=== PATIENT | female | born 1935 | race Caucasian/White ===

== ENCOUNTER 2017-09-20 18:14 | Emergency (ER) | payer MEDICARE, OTHER, SELFPAY ==
[2017-09-20 18:15] VITALS: BP 181/94; PULSE 109; RESP 18; TEMP 36.3; O2SAT 98; BMI 31.8
--- NOTE | 2017-09-20 19:11 | CT_ITS ---
STUDY: CT BRAIN WITHOUT CONTRAST REASON FOR EXAM: Female, 81 years old. Recent fall. Dementia. RADIATION DOSAGE (If Supplied By Facility): CTDIvol = ( 44.99 ) mGy, DLP = ( 745.49 ) mGycm TECHNIQUE: Transaxial CT imaging of the brain was performed without administration of intravenous contrast material. Individualized dose optimization techniques were used for this CT. COMPARISON: None. FINDINGS: Normal soft tissue structures. Normal calvarium. There is mild cerebral atrophy with widening of the extra-axial spaces and ventricular dilatation. Normal white matter tracts of the cerebral hemispheres. Normal basal ganglia and thalami. Normal brainstem. There is mild cerebellar atrophy. There is no intracranial hemorrhage. There are no findings of an acute ischemic infarction. Normal visualized paranasal sinuses. CT/Brain/Head without Contrast IMPRESSION: Mild atrophy. No acute abnormality. Electronically Signed: Reinaldo Kim MD at 20:44 EST , Service support ,
--- NOTE | 2017-09-20 19:11 | EKG12_ITS ---
Test Reason : Blood Pressure : / mmHG Vent. Rate : 090 BPM Atrial Rate : 090 BPM P-R Int : 242 ms QRS Dur : 092 ms QT Int : 378 ms P-R-T Axes : 058 064 032 degrees QTc Int : 462 ms Sinus rhythm with 1st degree A-V block Low voltage QRS (limb leads) Borderline ECG Confirmed by PIEDAD SINGH, GENE ([id number]), commercial production editor SANDHYA PATE ([id number] on 09/23/2017 12:52:51 PM Referred By: LUCINDA Confirmed By:GENE HERBERT MD
--- NOTE | 2017-09-20 19:12 | RAD_ITS ---
STUDY: X-RAY - PELVIS AND LEFT HIP REASON FOR EXAM: Female, 81 years old. Left hip pain after slipping and falling. TECHNIQUE: Radiological exam, hip, unilateral, with pelvis when performed; 2 or 3 views. COMPARISON: None. FINDINGS: There is a non-specific bowel gas pattern. Normal visualized soft tissue structures. There is generalized osteopenia. Normal bilateral iliac wings, sacroiliac joints and visualized sacrum. Normal bilateral superior and inferior pubic rami. Normal pubic symphysis. Normal bilateral ischial tuberosities. 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 No acute abnormality. Electronically Signed: Franki Michelle MD at 20:54 EST , Service support ,
[2017-09-20 19:29] LABS: Mucous, Urine 0 SEEN /hpf (<or=2+)
[2017-09-20] MEDS: 0.9% Normal Saline 1,000 ML 1000 ML IV (19:34)
--- NOTE | 2017-09-20 19:45 | RAD_ITS ---
STUDY: X-RAY CHEST REASON FOR EXAM: Female, 81 years old. Fall. Pain. TECHNIQUE: Single frontal view of the chest. COMPARISON: None. FINDINGS: The lungs are mildly hyperexpanded. There is no demonstrated pleural abnormality. There is cardiomegaly. Normal mediastinum and millicent. Normal visualized pulmonary arteries. Normal visualized aortic arch and descending thoracic aorta. Normal visualized thoracic spine. Incidentally noted is moderate arthrosis of both glenohumeral joints. There is no demonstrated abnormality of the visualized soft tissue structures of the upper abdomen. RAD/Chest 1 View (Portable) IMPRESSION: Cardiomegaly with mild hyperexpansion. No acute pathology. Electronically Signed: Franki Michelle MD at 20:52 EST , Service support ,
[2017-09-20 19:57] LABS: Absolute Lymphocyte Count 1.12 X10^3/ul (0.83-4.51); Basophil# 0.02 X10^3/uL; Basophil% 0.2 % (0-1); Eosinophil# 0.07 X10^3/uL; Eosinophils% 0.9 % (0-5); Hematocrit 34.1 % (37-47); Hemoglobin 10.6 g/dl (12.0-15.0); Lymphocyte # 1.12 X10^3/ul (4.0); Lymphocyte % 13.9 % (19-41); Mean Corp Hgb Conc 31.1 g/gl (32-36); Mean Corpuscular Hgb 28.6 pg (27.0-32.0); Mean Corpuscular Volume 92.2 fL (81-99); Mean Platelet Vol. 9.6 fl (6.2-12.0); Monocyte# 0.84 X10^3/uL; Monocyte% 10.4 % (0-10); Neutrophil # 6.02 X10^3/uL (2.7-7.7); Neutrophil % 74.5 % (47-70); POSITIVE COUNT NO; POSITIVE DIFFERENTIAL NO; POSITIVE MORPHOLOGY NO; Platelet Count 346 K/mm3 (150-450); RBC Distribution Width CV 13.8 % (11.6-14.6); White Blood Count 8.1 K/mm3 (4.4-11.0)
[2017-09-20 20:06] LABS: Color, Urine Yellow (Yellow); Glucose, Dipstick Normal (Normal); Ketone-Dipstick Negative (Negative); Leukocyte Esterase-Dipstick 500 /ul (Negative); Nitrite-Dipstick Negative (Negative); Occult Blood-Urine 10 /ul (Negative); Protein-Dipstick Negative (Negative); Urine Bilirubin Dipstick Negative (Negative); Urine Clarity Sl. Cloudy (Clear); Urine Urobilinogen Normal (Normal)
[2017-09-20 20:10] LABS: Anion Gap 10 (5-15); BUN 16 mg/dL (7-18); BUN/Creat Ratio 20.7 RATIO (10-20); Calcium,Total 9.8 mg/dL (8.5-10.1); Chloride 98 mmol/L (98-107); Creatinine, Serum 0.77 mg/dL (0.55-1.02); EST Glomerular Filtration Rate 76 mL/min (>60); Est Glom Filt Rate - Afr Amer 92 mL/min (>60); Estimated Creatinine Clearance 38.75 ml/min; Glucose 101 mg/dL (74-106); Sodium Level 137 mmol/L (136-145)
[2017-09-20 20:42] LABS: Bacteria 2+ /hpf (None Seen); Red Blood Cells-Urine 5-10 SEEN /hpf (0-5); Squamous Epithelial Cells - UA 0-5 SEEN /hpf (5-10); White Blood Cells 10-25 SEEN /hpf (0-5)
[2017-09-20 20:54] VITALS: RESP 18
--- NOTE | 2017-09-20 21:24 | ED.VISSUMM ---
- ER Visit Summary Date of Service: 09/20/17 Chief Complaint: Left hip pain History of Present Illness: The patient is a 81 F who presents with left hip pain. She does have a history of dementia. Family recently moved her back to the area. They do not yet have a family doctor. She has been having some increased confusion and agitation. A few days ago she was looking for someone under the bed and fell onto her left side. She has complained of some left hip pain but has been able to ambulate without difficulty. Family also notes that she has had some increased agitation and is been more combative. They were concerned for dehydration or UTI. They are in the process of establishing a physician. Physical Examination: Afebrile heart rate 109 vitals otherwise unremarkable Moist mucous membranes Heart regular rhythm tachycardia Lungs are clear Abdomen soft Active full range of motion ?4 no reproducible tenderness 2+ bilateral dorsalis pedis pulses Alert without any focal or lateralizing neurological deficits Test Results: EKG shows sinus rhythm at a rate of 90 with a first-degree AV block. Chest x-ray shows cardiomegaly but no acute process. 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 CT the head shows mild atrophy. Laboratory studies unremarkable except for urinalysis which shows 500 leukocyte esterase 10-25 WBCs 5 to RBCs 2+ bacteria. Emergency Department Course and Treatment: Initially the family was concerned about her agitation. However she has been calm and cooperative during her course here. Given that she does have a UTI I would expect improvement with treatment of this. Patient and family are in agreement with this plan and will take her home. They understand to return for new or worsening symptoms. All questions answered at bedside. Patient discharged. Treatment Plan: [] Disposition: Discharge Impression: UTI Dementia This note was generated with [employer] software. It may contain incorrect words, spelling, and punctuation that were not noted in review of the chart prior to signing ED Disposition - Plan for ED Patient: Chief Complaint: Lower Extremity Injury Referrals: Osvaldo Yip MD [Primary Care Provider] -
--- NOTE | 2017-09-20 21:27 | ED.DEP ---
ED Disposition - Plan for ED Patient: Chief Complaint: Lower Extremity Injury Instructions: ED UTI Cystitis Male, ED Dementia Alzheimer Prescriptions: Cephalexin [Keflex] 500 mg PO Q12H #20 cap Referrals: Osvaldo Yip MD [Primary Care Provider] -
[2017-09-20 21:35] VITALS: BP 164/90; PULSE 95; RESP 16; O2SAT 98
== END 2017-09-20 21:36 | disposition home or self-care (01) ==
PROVIDERS: Emergency Provider Emergency Medicine; Family Provider Family Medicine; PCP Family Medicine
DX: N39.0 Urinary tract infection, site not specified (principal); F03.90 Unspecified dementia, unspecified severity, without behavioral disturbance, psychotic disturbance, mood disturbance, and anxiety; M16.0 Bilateral primary osteoarthritis of hip; I10 Essential (primary) hypertension; Z79.899 Other long term (current) drug therapy
CPT/HCPCS: 70450; 71045; 73502; 80048; 81001; 85025; 93005; 96360; 96361; 99284; J7030; A4216

== ENCOUNTER 2017-09-23 13:02 | Emergency (ER) | payer MEDICARE, OTHER, SELFPAY ==
[2017-09-23 13:04] VITALS: BP 162/94; PULSE 99; RESP 16; TEMP 36.2; O2SAT 99; BMI 31.5
[2017-09-23 15:05] VITALS: BP 139/75; PULSE 64; RESP 15; O2SAT 96
[2017-09-23 15:14] LABS: Absolute Lymphocyte Count 1.35 X10^3/ul (0.83-4.51); Basophil# 0.02 X10^3/uL; Basophil% 0.2 % (0-1); Eosinophil# 0.08 X10^3/uL; Hematocrit 37.3 % (37-47); Hemoglobin 11.4 g/dl (12.0-15.0); Lymphocyte # 1.35 X10^3/ul (4.0); Lymphocyte % 16.6 % (19-41); Mean Corp Hgb Conc 30.6 g/gl (32-36); Mean Corpuscular Hgb 28.6 pg (27.0-32.0); Mean Corpuscular Volume 93.5 fL (81-99); Monocyte# 0.64 X10^3/uL; Monocyte% 7.9 % (0-10); Neutrophil # 6.02 X10^3/uL (2.7-7.7); Neutrophil % 74.2 % (47-70); POSITIVE COUNT NO; POSITIVE DIFFERENTIAL NO; POSITIVE MORPHOLOGY NO; Platelet Count 350 K/mm3 (150-450); RBC Distribution Width CV 13.9 % (11.6-14.6); RBC Distribution Width SD 47.7 fl (35.1-43.9); Red Blood Count 3.99 M/mm3 (4.2-5.4); White Blood Count 8.1 K/mm3 (4.4-11.0)
[2017-09-23 15:21] LABS: Anion Gap 7 (5-15); BUN 13 mg/dL (7-18); BUN/Creat Ratio 16.2 RATIO (10-20); Calcium,Total 9.9 mg/dL (8.5-10.1); Chloride 100 mmol/L (98-107); EST Glomerular Filtration Rate 73 mL/min (>60); Est Glom Filt Rate - Afr Amer 88 mL/min (>60); Estimated Creatinine Clearance 48.43 ml/min; Glucose 151 mg/dL (74-106); Potassium 3.5 mmol/L (3.5-5.1); Sodium Level 139 mmol/L (136-145)
--- NOTE | 2017-09-23 16:46 | ED.DCSUM_ITS ---
- ER Visit Summary Date of Service: 09/23/17 Chief Complaint: Agitation History of Present Illness: The patient is a 81 F with a history of dementia who presents with agitation. She underwent a full workup just a few days ago and was diagnosed with UTI. Family states she has continued to become increasingly agitated. She has been calling multiple people on the phone asking them to pick her up. She has had hallucinations. She has been afraid that people are holding guns. No recent medical illnesses far as fevers vomiting diarrhea. The patient denies any pain currently. Currently she has also been asking for knives and threatening to hurt family members who she did not recognize. Physical Examination: Afebrile vitals are stable Moist mucous membranes Heart regular rate and rhythm Lungs are clear Abdomen soft Alert, oriented to person No focal or lateralizing neurological deficits Test Results: CBC BMP unremarkable. Emergency Department Course and Treatment: Patient underwent a workup just a few days ago including imaging labs and urine. I do not feel that urinalysis EKG chest x-ray or CT the head needed repeated. We did repeat a CBC and BMP and spoke to crisis. Given that the patient is not improving I do feel she will likely need admission to a general psychiatric unit. The patient did get to have some increased agitation here pacing the hallways. She was given Ativan. At the time of this dictation crisis is evaluating the patient and attempting to arrange transfer. Treatment Plan: [] Disposition: Transfer pending crisis evaluation Impression: Dementia with behavioral disturbance This note was generated with [employer] dictation software. It may contain incorrect words, spelling, and punctuation that were not noted in review of the chart prior to signing ED Disposition - Plan for ED Patient: Chief Complaint: General Illness Referrals: Osvaldo Yip MD [Primary Care Provider] -
[2017-09-23] MEDS: LORazepam 1 MG Tablet PO (17:03)
[2017-09-23] MEDS: Haloperidol Lactate 5 MG/ML Vial 2 MG IM (18:05)
[2017-09-23 21:31] VITALS: BP 144/73; PULSE 83; RESP 16; O2SAT 99
[2017-09-24 00:40] VITALS: BP 142/72; BP 142/74; PULSE 74; RESP 16; O2SAT 97
== END 2017-09-24 01:00 ==
PROVIDERS: Emergency Provider Emergency Medicine; Family Provider Family Medicine; PCP Family Medicine
DX: F03.91 Unspecified dementia, unspecified severity, with behavioral disturbance (principal); R45.1 Restlessness and agitation; Z91.83 Wandering in diseases classified elsewhere; I10 Essential (primary) hypertension; Z79.82 Long term (current) use of aspirin; Z79.899 Other long term (current) drug therapy
CPT/HCPCS: 80048; 85025; 96372; 99283

== ENCOUNTER 2018-01-30 15:07 | Inpatient (IN) | payer MEDICARE, OTHER, SELFPAY ==
[2018-01-30] VITALS (16 sets, daily range): BP systolic 120–159; BP diastolic 59–108; PULSE 73–99; RESP 15–23; TEMP 36.7–37; O2SAT 18–100; BMI 30.8; BMI 30.9; BMI 30.7
--- NOTE | 2018-01-30 15:09 | EKG12_ITS ---
Test Reason : DYSRHYTHMIA Blood Pressure : / mmHG Vent. Rate : 092 BPM Atrial Rate : 092 BPM P-R Int : 202 ms QRS Dur : 092 ms QT Int : 374 ms P-R-T Axes : 058 064 042 degrees QTc Int : 462 ms Normal sinus rhythm Normal ECG Confirmed by MANINDER SINGH, JENELLE ([id number]), video editor SANDHYA PATE ([id number]) on 02/03/2018 3:01:05 PM Referred By: MARY ELLEN Confirmed By:JENELLE DICKENS MD
--- NOTE | 2018-01-30 15:14 | ED.VISSUMM ---
- ER Visit Summary Date of Service: 01/30/18 Chief Complaint: Anemia History of Present Illness: The patient is a 82 F sent in from a [place] [facility] for anemia with a hemoglobin of 4.4 noted on this morning's labs. There is no reported obvious source of blood loss. Patient has no complaints. Patient has a history of dementia, hypertension, hypothyroidism. In review of her medication list it does not appear that she is on anticoagulants. Physical Examination: Blood pressure is 157/69, temperature 98.6, heart rate 77, respiratory rate 17, pulse ox 98% on room air. Patient sitting upright in bed in no acute distress. She is alert and talkative. Head neck examination reveals pale conjunctiva. Heart is regular rate and rhythm. Lung sounds are clear. Abdomen is soft nontender. Test Results: EKG is sinus at 92 with no sign of acute ischemia. CBC was a white count of 4.0, hemoglobin 4.5, hematocrit 17.0. White count is 457,000. Chemistry studies are significant for potassium of 3.3, otherwise normal. Coags normal. Stool guaiac is obtained and negative. Last lab available for comparison is from September at which time her hemoglobin was 11.4. Emergency Department Course and Treatment: At this time patient has been ordered 3 units of packed RBCs. Vital signs are stable. She will be admitted for blood transfusion. Treatment Plan: [] Disposition: Admit Impression: Anemia This note was generated with [employer] dictation software. It may contain incorrect words, spelling, and punctuation that were not noted in review of the chart prior to signing ED Disposition - Plan for ED Patient: Chief Complaint: Abn Labs Referrals: Osvaldo Yip MD [Primary Care Provider] -
[2018-01-30 15:42] LABS: Anion Gap 8 (5-15); BUN 11 mg/dL (7-18); BUN/Creat Ratio 14.5 RATIO (10-20); Chloride 97 mmol/L (98-107); Creatinine, Serum 0.76 mg/dL (0.55-1.02); EST Glomerular Filtration Rate 78 mL/min (>60); Est Glom Filt Rate - Afr Amer 94 mL/min (>60); Glucose 107 mg/dL (74-106); Potassium 3.3 mmol/L (3.5-5.1); Sodium Level 137 mmol/L (136-145)
[2018-01-30] MEDS: 0.9% Normal Saline 1,000 ML 15 ML IV (15:47)
[2018-01-30 15:50] LABS: Partial Thromboplast Time 24.5 Seconds (24.1-36.2); Prothrombin Time (Protime)PT. 13.3 SECONDS (11.7-14.9)
[2018-01-30 15:58] LABS: Absolute Lymphocyte Count 0.94 X10^3/ul (0.83-4.51); Absolute Neutrophil Count 2.2 X10^3/uL (2.0-7.7); Basophil# 0.04 X10^3/uL; Eosinophil# 0.09 X10^3/uL; Eosinophils% 2.2 % (0-5); Lymphocyte # 0.94 X10^3/ul (4.0); Lymphocyte % 23.3 % (19-41); Mean Corp Hgb Conc 26.5 g/gl (32-36); Mean Corpuscular Hgb 17.8 pg (27.0-32.0); Mean Corpuscular Volume 67.2 fL (81-99); Mean Platelet Vol. 9.3 fl (6.2-12.0); Monocyte% 19.9 % (0-10); Neutrophil # 2.15 X10^3/uL (2.7-7.7); Neutrophil % 53.4 % (47-70); Platelet Count 457 K/mm3 (150-450); RBC Distribution Width CV 21.4 % (11.6-14.6); RBC Distribution Width SD 51.5 fl (35.1-43.9); Red Blood Count 2.53 M/mm3 (4.2-5.4)
[2018-01-30 15:59] LABS: Differential Indicated SCAN CRITERIA MET; Hemoglobin 4.5 g/dl (12.0-15.0); POSITIVE COUNT YES; POSITIVE DIFFERENTIAL NO; POSITIVE MORPHOLOGY YES
--- NOTE | 2018-01-30 15:59 | ED.RN ---
lab resulted hgb 4.5. physician notified
[2018-01-30 16:27] LABS: Anisocytosis 2+; Differential Comment SCANNED; Hypochromasia 1+; Ovalocyte 1+; Polychromasia RARE; Schistocytes RARE; Target Cells 1+
--- NOTE | 2018-01-30 16:36 | PCM.HP.STD ---
History of Present Illness Date of Admission: 01/30/18 Chief Complaint: pallor and lethargy The patient is an 82 year old F with past medical history of Alzheimer's dementia, essential hypertension, hypothyroidism who [facility]. She has been noted to have increasing pallor and lethargy . CBC was obtained and showed hemoglobin of 4.4 ,she was recommended to come to the emergency room for further evaluation. Repeat hemoglobin in the emergency room was 4.5 with microcytic indices, her stool Hemoccult test was negative. The patient denies any epigastric pain, melena stools, hematemesis, chest pain ,shortness of breath, dizziness or palpitations but she has peripheral edema. Past Medical History Allergies No Known Allergies Allergy (Verified 09/23/17 13:04) Home Medications: Ambulatory Orders Medication Instructions Recorded Denosumab [Prolia] 60 mg SQ .COMPLEX 09/20/17 Levothyroxine [Synthroid] 50 mcg PO DAILY 09/20/17 Memantine Hydrochloride [Namenda] 10 mg PO BID 09/20/17 Aspirin [Aspirin, Baby] 81 mg PO DAILY 09/23/17 Cholecalciferol (Vitamin D3) 2,000 unit PO DAILY 09/23/17 [Vitamin D3] Acetaminophen 1,000 mg PO TID 01/30/18 Furosemide [Lasix] 20 mg PO DAILY 01/30/18 Lorazepam [Ativan] 0.5 mg PO TID 01/30/18 Losartan/Hydrochlorothiazide 1 tab PO DAILY 01/30/18 [Hyzaar 50-12.5 Tablet] Multivit-Min/Iron Fum/Folic AC 1 tablet PO DAILY 01/30/18 [Iyiph-Qoiodol-Ikfsuior Tablet] Omeprazole 20 mg PO QHS 01/30/18 Paroxetine HCl [Paxil] 20 mg PO DAILY 01/30/18 Risperidone [Risperdal] 0.25 mg PO BID 01/30/18 Sennosides/Docusate Sodium [Senna 1 tablet PO BID 01/30/18 Plus Tablet] Venlafaxine XR [Effexor Xr] 37.5 mg PO DAILY 01/30/18 traZODone [Desyrel] 25 mg PO QHS 01/30/18 Smoking Status: Never smoker Review of Systems Comment: All Systems were reviewed with pertinent positives mentioned in the HPI above. VTE Information - Inpt Only VTE Present on Admission: No VTE Mechan Device Prophylaxis: SCD's - Physical Exam General: Alert, Oriented x3 Oral: Moist Mucosa Neck: Supple, No JVD Lungs: Clear to auscultation, No rhonchi, No rales Cardiovascular: Regular rate, Regular Rhythm, Normal S1, Normal S2 Abdomen: Bowel Sounds Present, Soft, Non Tender, Non-Distended Extremities: No edema Musculoskeletal: No Tenderness to Palpation of Joints or Extremities Neurological: Cranial nerves II-XII grossly intact, Motor Exam 5/5 strength throughout Psych/Mental Status: Normal Affect Vital Signs Temp Pulse Resp BP Pulse Ox 98.6 F 75 16 148/71 H 99 01/30/18 15:07 01/30/18 16:00 01/30/18 16:00 01/30/18 16:00 01/30/18 16:00 Oxygen Delivery Method Room Air Weight: 81.556 kg Body Mass Index (BMI) 30.8 Microbiology Past 72 Hours 01/30/18 15:35 Stool Occult Blood (JAZMIN) - Final Stool Laboratory Tests Past 24 Hrs 01/30/18 01/30/18 01/30/18 15:20 15:20 15:20 WBC 4.0 L RBC 2.53 L Hgb 4.5 L* Hct 17.0 L MCV 67.2 L MCH 17.8 L MCHC 26.5 L RDW 21.4 H RDW Differential 51.5 H Plt Count 457 H MPV 9.3 Immature Gran % (Auto) 0.200 Neut % (Auto) 53.4 Lymph % (Auto) 23.3 [place] % (Auto) 19.9 H Eos % (Auto) 2.2 Baso % (Auto) 1.0 Absolute Neuts (auto) 2.2 Absolute Lymphs (auto) 0.94 Total Counted Not Reportable Differential Comment SCANNED Diff Path Review May foll Polychromasia RARE Hypochromasia 1+ Anisocytosis 2+ Target Cells 1+ Ovalocytes 1+ Schistocytes RARE PT 13.3 INR 1.0 APTT 24.5 Sodium 137 Potassium 3.3 L Chloride 97 L Carbon Dioxide 32.0 Anion Gap 8 BUN 11 Creatinine 0.76 Estim Creat Clear Calc 38.10 Est GFR (MDRD) Af Amer 94 Est GFR (MDRD) Non-Af 78 BUN/Creatinine Ratio 14.5 Glucose 107 H Calcium 9.0 Blood Type Antibody Screen Crossmatch 01/30/18 15:20 WBC RBC Hgb Hct MCV MCH MCHC RDW RDW Differential Plt Count MPV Immature Gran % (Auto) Neut % (Auto) Lymph % (Auto) [place] % (Auto) Eos % (Auto) Baso % (Auto) Absolute Neuts (auto) Absolute Lymphs (auto) Total Counted Differential Comment Diff Path Review Polychromasia Hypochromasia Anisocytosis Target Cells Ovalocytes Schistocytes PT INR APTT Sodium Potassium Chloride Carbon Dioxide Anion Gap BUN Creatinine Estim Creat Clear Calc Est GFR (MDRD) Af Amer Est GFR (MDRD) Non-Af BUN/Creatinine Ratio Glucose Calcium Blood Type Pending Antibody Screen Pending Crossmatch See Detail Assessment/Plan 1. Microcytic anemia; Hemoccult test is negative, we will obtain iron parameters, will transfuse with packed RBCs. Patient will require EGD and colonoscopy to rule out GI blood loss. We will consult general surgeon for this. 2. Hypothyroidism; we will continue Synthroid. 3. Dementia; supportive care, will continue her cognitive enhancing medications. 4. Essential hypertension we will resume her home medications. 5. DVT prophylaxis with SCDs. Code Visit Inpatient E&M: 70663 Init Hosp L3
[2018-01-30 18:15] LABS: Ferritin 6 ng/mL (8-252); Iron 14 ug/dL (50-170); Iron Binding Capacity,Total 524 ug/dL (250-450)
--- NOTE | 2018-01-30 18:54 | NURSING ---
reviewed D Nataly RN charting and agree with assessment findings
[2018-01-30 19:49] LABS: M R Staph aureus DNA By PCR Negative (Negative); Probe Check PASS; Specimen Processing Control PASS
[2018-01-30] MEDS: LORazepam 0.5 MG Tablet PO (21:25)
[2018-01-30] MEDS: Acetaminophen 500 MG Tablet 1000 MG PO (21:26)
[2018-01-30] MEDS: Memantine Hydrochloride 10 MG Tablet PO (21:26)
[2018-01-30] MEDS: Pantoprazole Sodium 40 MG Tablet PO (21:26)
[2018-01-30] MEDS: traZODone 50 MG Tablet 25 MG PO (21:27)
[2018-01-30] MEDS: RisperiDONE 0.25 MG Tablet PO (21:27)
[2018-01-30] MEDS: Senna/Docusate Sodium 1 Tablet PO (21:27)
--- NOTE | 2018-01-30 21:50 | NURSING ---
2nd unit of PRBC's hung at 2030. Rate increased with stable vitals, to 125cc/hr. Patient tolerating well. Regi Alonso RN
--- NOTE | 2018-01-30 21:54 | NURSING ---
During my assessment patient's daughter stated patient is a DNR-CCA and not a full code as listed in the orders, Hospitalist will be notified of this discrepency. Regi Alonso RN.
[2018-01-31] VITALS (14 sets, daily range): BP systolic 110–164; BP diastolic 45–142; PULSE 65–94; RESP 12–26; TEMP 36.6–37.1; O2SAT 93–99
[2018-01-31 04:24] LABS: Absolute Lymphocyte Count 1.37 X10^3/ul (0.83-4.51); Absolute Neutrophil Count 2.9 X10^3/uL (2.0-7.7); Basophil# 0.03 X10^3/uL; Basophil% 0.7 % (0-1); Differential Indicated SCAN CRITERIA MET; Eosinophil# 0.12 X10^3/uL; Eosinophils% 2.6 % (0-5); Hematocrit 27.5 % (37-47); Hemoglobin 8.2 g/dl (12.0-15.0); Lymphocyte # 1.37 X10^3/ul (4.0); Lymphocyte % 30.2 % (19-41); Mean Corp Hgb Conc 29.8 g/gl (32-36); Mean Corpuscular Hgb 21.7 pg (27.0-32.0); Mean Corpuscular Volume 72.8 fL (81-99); Mean Platelet Vol. 9.5 fl (6.2-12.0); Monocyte# 0.15 X10^3/uL; Monocyte% 3.3 % (0-10); Neutrophil # 2.85 X10^3/uL (2.7-7.7); POSITIVE COUNT NO; POSITIVE DIFFERENTIAL NO; POSITIVE MORPHOLOGY YES; Platelet Count 394 K/mm3 (150-450); RBC Distribution Width CV 20.5 % (11.6-14.6); RBC Distribution Width SD 53.9 fl (35.1-43.9); Red Blood Count 3.78 M/mm3 (4.2-5.4); White Blood Count 4.5 K/mm3 (4.4-11.0)
[2018-01-31 04:32] LABS: Anion Gap 7 (5-15); BUN 9 mg/dL (7-18); BUN/Creat Ratio 15.4 RATIO (10-20); Calcium,Total 8.8 mg/dL (8.5-10.1); Chloride 101 mmol/L (98-107); Creatinine, Serum 0.58 mg/dL (0.55-1.02); EST Glomerular Filtration Rate 105 mL/min (>60); Est Glom Filt Rate - Afr Amer 127 mL/min (>60); Glucose 93 mg/dL (74-106); Potassium 3.2 mmol/L (3.5-5.1); Sodium Level 138 mmol/L (136-145)
[2018-01-31] MEDS: Acetaminophen 500 MG Tablet 1000 MG PO (05:04)
[2018-01-31] MEDS: LORazepam 0.5 MG Tablet PO (05:04)
[2018-01-31] MEDS: Levothyroxine 50 MCG Tablet PO (05:04)
--- NOTE | 2018-01-31 07:45 | NURSING ---
per pt's dtr, Lauren (POA), they wish the pt to be dc home to [facility] w/a hospice consult. Dr. Hunt notified via [employer]
--- NOTE | 2018-01-31 08:08 | PCM.PN.HOSP ---
Patient Problems: Active and Suspected Problems Acute blood loss anemia (Acute) Subjective: Had some increased confusion overnight. Vitals/I&O's: Vital Signs Temp Pulse Resp BP Pulse Ox 36.7 C 65 13 133/45 H 94 01/31/18 03:00 01/31/18 07:50 01/31/18 06:00 01/31/18 06:00 01/31/18 06:00 Oxygen Delivery Method Room Air Weight: 81.1 kg Body Mass Index (BMI) 30.7 Intake and Output for Last 24 Hours 01/29/18 01/30/18 01/31/18 23:59 23:59 23:59 Intake Total 1468 / 1468 400 / 400 Output Total 800 / 800 1026 / 1026 Balance 668 / 668 -626 / -626 General: - - Leaping, did not awake. HEENT: Atraumatic, Normocephalic Neck: No Nodes, Thyroid Normal Size and Texture Lungs: Clear to auscultation, Normal air movement, No rhonchi, No wheeze Cardiovascular: Regular rate, Regular Rhythm, Normal S1, Normal S2, No murmurs Abdomen: Bowel Sounds Present, Soft, Non Tender, Non-Distended, No Hepato-splenomegaly Extremities: No edema, No Calf Tenderness Laboratory Results 01/30/18 18:20: MRSA (PCR) Negative 01/31/18 04:10: WBC 4.5, RBC 3.78 L, Hgb 8.2 L, Hct 27.5 L, MCV 72.8 L, MCH 21.7 L, MCHC 29.8 L, RDW 20.5 H, RDW Differential 53.9 H, Plt Count 394, MPV 9.5, Immature Gran % (Auto) 0.200, Neut % (Auto) 63.0, Lymph % (Auto) 30.2, [place] % (Auto) 3.3, Eos % (Auto) 2.6, Baso % (Auto) 0.7, Absolute Neuts (auto) 2.9, Absolute Lymphs (auto) 1.37, Total Counted Not Reportable, Differential Comment 01/31/18 04:10: Sodium 138, Potassium 3.2 L, Chloride 101, Carbon Dioxide 30.0, Anion Gap 7, BUN 9, Creatinine 0.58, Estim Creat Clear Calc 38.10, Est GFR (MDRD) Af Amer 127, Est GFR (MDRD) Non-Af 105, BUN/Creatinine Ratio 15.4, Glucose 93, Calcium 8.8 Current Medications Acetaminophen (Tylenol) 1,000 mg PO TID [facility] Last Admin: 01/31/18 05:04 Dose: 1,000 mg Cholecalciferol (Vitamin D) 2,000 unit PO DAILY [facility] Furosemide (Lasix) 20 mg PO DAILY [facility] Hydrochlorothiazide (Hydrochlorothiazide) 12.5 mg PO DAILY [facility] Levothyroxine Sodium (Synthroid) 50 mcg PO DAILY@0600 [facility] Last Admin: 01/31/18 05:04 Dose: 50 mcg Lorazepam (Ativan) 0.5 mg PO TID [facility] Last Admin: 01/31/18 05:04 Dose: 0.5 mg Losartan Potassium (Cozaar) 50 mg PO DAILY [facility] Magnesium Hydroxide (Milk Of Magnesia) 30 ml PO DAILY PRN PRN PRN Reason: Constipation Memantine (Namenda) 10 mg PO BID [facility] Last Admin: 01/30/18 21:26 Dose: 10 mg Multivitamins/Minerals ([facility]ivitamin With Minerals) [facility] Pantoprazole Sodium (Protonix) 40 mg PO BID [facility] Last Admin: 01/30/18 21:26 Dose: 40 mg Paroxetine HCl (Paxil) 20 mg PO DAILY [facility] Potassium Bicarb/Potassium Chloride (Potassium Chl 25 Meq Eff (For Liquid)) 50 meq PO X1 ONE Stop: 01/31/18 08:01 Risperidone (Risperdal) 0.25 mg PO BID [facility] Last Admin: 01/30/18 21:27 Dose: 0.25 mg Senna/Docusate Sodium (Senokot-S, Cindy-Colace) 1 tablet PO BID [facility] Last Admin: 01/30/18 21:27 Dose: 1 tablet Sodium Chloride () 5 - 30 ml IV UD PRN PRN Reason: SALINE FLUSH Trazodone HCl (Desyrel) 25 mg PO QHS [facility] Last Admin: 01/30/18 21:27 Dose: 25 mg Venlafaxine HCl (Effexor Xr) 37.5 mg PO DAILY [facility] Medical Necessity - Tobacco Use Smoking Status: Never smoker Assessment/Plan All Active Problems Acute blood loss anemia (Acute) 1. Acute blood loss anemia Unclear time of onset but given the microcytic parameters in fact the patient has not been symptomatic until late I suspect this may be more of a chronic process. Hemoglobin has improved to 8.2 from 4.5 and this is after 3 units of packed red blood cells. Family is not interested in intervention, including colonoscopy or EGD as it may only seek to aggravate her delirium and lesion with her dementia They are currently in agreement with utilizing ferrous sulfate his iron replacement for now and routine blood checks. Family expressed that they would like for the patient to be hospice. So I talked with him further to see if they are interested in blood work and things like that they they are at this time. They stated that they would be in agreement with meeting with palliative care. There where the palliative care could transition over to hospice. I explained that given the patient's dementia and the fact that it will continue to decline that patient would be hospice appropriate. At this time patient will not be just continue with DNR Comfort Care arrest but will have padded care involved and then the family understands that given her condition with her dementia and any other issues that the utilization of hospice could be some the used at a later point. So patient will be discharged back to her extended care facility in stable condition today.
--- NOTE | 2018-01-31 08:11 | PN_ITS ---
Patient Problems: Active and Suspected Problems Acute blood loss anemia (Acute) Subjective: Had some increased confusion overnight. Vitals/I&O's: Vital Signs Temp Pulse Resp BP Pulse Ox 36.7 C 65 13 133/45 H 94 01/31/18 03:00 01/31/18 07:50 01/31/18 06:00 01/31/18 06:00 01/31/18 06:00 Oxygen Delivery Method Room Air Weight: 81.1 kg Body Mass Index (BMI) 30.7 Intake and Output for Last 24 Hours 01/29/18 01/30/18 01/31/18 23:59 23:59 23:59 Intake Total 1468 / 1468 400 / 400 Output Total 800 / 800 1026 / 1026 Balance 668 / 668 -626 / -626 General: - - Leaping, did not awake. HEENT: Atraumatic, Normocephalic Neck: No Nodes, Thyroid Normal Size and Texture Lungs: Clear to auscultation, Normal air movement, No rhonchi, No wheeze Cardiovascular: Regular rate, Regular Rhythm, Normal S1, Normal S2, No murmurs Abdomen: Bowel Sounds Present, Soft, Non Tender, Non-Distended, No Hepato- splenomegaly Extremities: No edema, No Calf Tenderness Laboratory Results 01/30/18 18:20: MRSA (PCR) Negative 01/31/18 04:10: WBC 4.5, RBC 3.78 L, Hgb 8.2 L, Hct 27.5 L, MCV 72.8 L, MCH 21.7 L, MCHC 29.8 L, RDW 20.5 H, RDW Differential 53.9 H, Plt Count 394, MPV 9.5 , Immature Gran % (Auto) 0.200, Neut % (Auto) 63.0, Lymph % (Auto) 30.2, Young % (Auto) 3.3, Eos % (Auto) 2.6, Baso % (Auto) 0.7, Absolute Neuts (auto) 2.9, Absolute Lymphs (auto) 1.37, Total Counted Not Reportable, Differential Comment 01/31/18 04:10: Sodium 138, Potassium 3.2 L, Chloride 101, Carbon Dioxide 30.0, Anion Gap 7, BUN 9, Creatinine 0.58, Estim Creat Clear Calc 38.10, Est GFR (MDRD ) Af Amer 127, Est GFR (MDRD) Non-Af 105, BUN/Creatinine Ratio 15.4, Glucose 93 , Calcium 8.8 Current Medications Acetaminophen (Tylenol) 1,000 mg PO TID [facility] Last Admin: 01/31/18 05:04 Dose: 1,000 mg Cholecalciferol (Vitamin D) 2,000 unit PO DAILY [facility] Furosemide (Lasix) 20 mg PO DAILY [facility] Hydrochlorothiazide (Hydrochlorothiazide) 12.5 mg PO DAILY [facility] Levothyroxine Sodium (Synthroid) 50 mcg PO DAILY@0600 [facility] Last Admin: 01/31/18 05:04 Dose: 50 mcg Lorazepam (Ativan) 0.5 mg PO TID [facility] Last Admin: 01/31/18 05:04 Dose: 0.5 mg Losartan Potassium (Cozaar) 50 mg PO DAILY [facility] Magnesium Hydroxide (Milk Of Magnesia) 30 ml PO DAILY PRN PRN PRN Reason: Constipation Memantine (Namenda) 10 mg PO BID [facility] Last Admin: 01/30/18 21:26 Dose: 10 mg Multivitamins/Minerals ([facility]ivitamin With Minerals) [facility] Pantoprazole Sodium (Protonix) 40 mg PO BID [facility] Last Admin: 01/30/18 21:26 Dose: 40 mg Paroxetine HCl (Paxil) 20 mg PO DAILY [facility] Potassium Bicarb/Potassium Chloride (Potassium Chl 25 Meq Eff (For Liquid)) 50 meq PO X1 ONE Stop: 01/31/18 08:01 Risperidone (Risperdal) 0.25 mg PO BID [facility] Last Admin: 01/30/18 21:27 Dose: 0.25 mg Senna/Docusate Sodium (Senokot-S, Cindy-Colace) 1 tablet PO BID [facility] Last Admin: 01/30/18 21:27 Dose: 1 tablet Sodium Chloride () 5 - 30 ml IV UD PRN PRN Reason: SALINE FLUSH Trazodone HCl (Desyrel) 25 mg PO QHS [facility] Last Admin: 01/30/18 21:27 Dose: 25 mg Venlafaxine HCl (Effexor Xr) 37.5 mg PO DAILY [facility] Medical Necessity - Tobacco Use Smoking Status: Never smoker Assessment/Plan All Active Problems Acute blood loss anemia (Acute) 1. Acute blood loss anemia * Unclear time of onset but given the microcytic parameters in fact the patient has not been symptomatic until late I suspect this may be more of a chronic process. * Hemoglobin has improved to 8.2 from 4.5 and this is after 3 units of packed red blood cells. * Family is not interested in intervention, including colonoscopy or EGD as it may only seek to aggravate her delirium and lesion with her dementia * They are currently in agreement with utilizing ferrous sulfate his iron replacement for now and routine blood checks. Family expressed that they would like for the patient to be hospice. So I talked with him further to see if they are interested in blood work and things like that they they are at this time. They stated that they would be in agreement with meeting with palliative care. There where the palliative care could transition over to hospice. I explained that given the patient's dementia and the fact that it will continue to decline that patient would be hospice appropriate. At this time patient will not be just continue with DNR Comfort Care arrest but will have padded care involved and then the family understands that given her condition with her dementia and any other issues that the utilization of hospice could be some the used at a later point. So patient will be discharged back to her extended care facility in stable condition today.
--- NOTE | 2018-01-31 08:18 | PCM.TXEXTCAR ---
- Diet 01/30/18 18:15 Diet: Clear Liquid Is pt able to select menu?: Yes Diet Comments: no red foods - Routine Orders/Code Status Suppository Type: Dulcolax 10mg Suppository Frequency: Daily PRN Routine Lab Work: CBC - Weekly, BMP - 1 week, - - Magnesium level in 1 week Code Status: DNRCC-A - Therapies Weight Bearing: Full weight bearing - Allergies/Procedures Done in Hospital Allergies/Adverse Reactions: Allergies No Known Allergies Allergy (Verified 09/23/17 13:04) - Type of Care/Length of Stay Estimated LOS: More Than 30 Days Type of Care Needed: [facility]/Assisted Living Rehab Potential: Poor Prognosis: Fair - Additional Orders/Day of Discharge Day of Discharge: 01/31/18 - Dietary and Speech Recommendations Dietitian Recommendations/Changes: As medically able, rec AMITA to Cardiac. Will provide ensure clear while on clear liquid diet for increased nutrition if consumed - Follow Up Care Primary Care Physician: Osvaldo Yip MD [Primary Care Provider] - Within 1 Week Please Follow Up With: palliative care When: 1 week
--- NOTE | 2018-01-31 08:21 | TREXTCAR_ITS ---
- Diet 01/30/18 18:15 Diet: Clear Liquid Is pt able to select menu?: Yes Diet Comments: no red foods - Routine Orders/Code Status Suppository Type: Dulcolax 10mg Suppository Frequency: Daily PRN Routine Lab Work: CBC - Weekly, BMP - 1 week, - - Magnesium level in 1 week Code Status: DNRCC-A - Therapies Weight Bearing: Full weight bearing - Allergies/Procedures Done in Hospital Allergies/Adverse Reactions: Allergies No Known Allergies Allergy (Verified 09/23/17 13:04) - Type of Care/Length of Stay Estimated LOS: More Than 30 Days Type of Care Needed: Residential/Assisted Living Rehab Potential: Poor Prognosis: Fair - Additional Orders/Day of Discharge Day of Discharge: 01/31/18 - Dietary and Speech Recommendations Dietitian Recommendations/Changes: As medically able, rec AMITA to Cardiac. Will provide ensure clear while on clear liquid diet for increased nutrition if consumed - Follow Up Care Primary Care Physician: Osvaldo Yip MD [Primary Care Provider] - Within 1 Week Please Follow Up With: palliative care When: 1 week
--- NOTE | 2018-01-31 08:23 | DS.PCM_ITS ---
Discharge Date and Diagnosis - Problem List Patient Problems: Active and Suspected Problems Acute blood loss anemia (Acute) Date of Admission: 01/30/18 Date of Discharge: 01/31/18 - Primary Discharge Diagnosis Active and Suspected Problems Acute blood loss anemia (Acute) Hospital Course and Treatment Operations: None Procedures: - - transfusion Summary of Care Provided: The patient is a 82 year old F presents with anemia. 1. Acute blood loss anemia * Unclear time of onset but given the microcytic parameters in fact the patient has not been symptomatic until late I suspect this may be more of a chronic process. * Hemoglobin has improved to 8.2 from 4.5 and this is after 3 units of packed red blood cells. * Family is not interested in intervention, including colonoscopy or EGD as it may only seek to aggravate her delirium and lesion with her dementia * They are currently in agreement with utilizing ferrous sulfate his iron replacement for now and routine blood checks. Family expressed that they would like for the patient to be hospice. So I talked with him further to see if they are interested in blood work and things like that they they are at this time. They stated that they would be in agreement with meeting with palliative care. There where the palliative care could transition over to hospice. I explained that given the patient's dementia and the fact that it will continue to decline that patient would be hospice appropriate. At this time patient will not be just continue with DNR Comfort Care arrest but will have padded care involved and then the family understands that given her condition with her dementia and any other issues that the utilization of hospice could be some the used at a later point. So patient will be discharged back to her extended care facility in stable condition today.[] Discharge Diet: No Restrictions Discharge Activity: Return to Normal Activity Call your doctor if you observe: Shortness of breath, Chest pain Home Medications: Medications to take at Discharge Denosumab [Prolia] 60 mg SQ .COMPLEX 09/20/17 Levothyroxine [Synthroid] 50 mcg PO DAILY 09/20/17 Memantine Hydrochloride [Namenda] 10 mg PO BID 09/20/17 Cholecalciferol (Vitamin D3) [Vitamin D3] 2,000 unit PO DAILY 09/23/17 Acetaminophen 1,000 mg PO TID 01/30/18 Furosemide [Lasix] 20 mg PO DAILY 01/30/18 Losartan/Hydrochlorothiazide [Hyzaar 50-12.5 Tablet] 1 tab PO DAILY 01/30/18 Multivit-Min/Iron Fum/Folic AC [Nrdaa-Wkmyrut-Folwsdih Tablet] 1 tablet PO DAILY 01/30/18 Omeprazole 20 mg PO QHS 01/30/18 Paroxetine HCl [Paxil] 20 mg PO DAILY 01/30/18 Risperidone [Risperdal] 0.25 mg PO BID 01/30/18 Sennosides/Docusate Sodium [Senna Plus Tablet] 1 tablet PO BID 01/30/18 Venlafaxine XR [Effexor Xr] 37.5 mg PO DAILY 01/30/18 traZODone [Desyrel] 25 mg PO QHS 01/30/18 Ferrous Sulfate 325 mg PO BIDCM #1 tablet 01/31/18 Lorazepam [Ativan] 0.5 mg PO TID PRN #3 tab 01/31/18 Potassium Chloride 20 meq PO DAILY #1 packet 01/31/18 Following Prescrptions Were Given to Patient: Potassium Chloride 20 meq PO DAILY #1 packet Ferrous Sulfate 325 mg PO BIDCM #1 tablet Lorazepam [Ativan] 0.5 mg PO TID PRN #3 tab PRN Reason: Anxiety Primary Care Physician: Osvaldo Yip MD [Primary Care Provider] - Within 1 Week Please Follow Up With: palliative care When: 1 week Disposition: Asstd Living/[facility] Minutes spent on discharge:: 32 Patient Condition:: Stable Medical Necessity - Tobacco Use Smoking Status: Never smoker Meaningful Use Info Meaningful Use Diagnoses (Choose all that apply): None applicable Code Visit Inpatient E&M: 30991 Disch Hosp
--- NOTE | 2018-01-31 09:15 | CASEMGMT ---
Pt is here from [facility], ready to return. SW faxed all discharge paperwork to [facility], [facility]. SW spoke w/daughter, granddaughter and in room. They have no preference for transport, would like to meet w/hospice once pt gets back to [facility], and daughter is the electrical contacts adjuster. SW explained will have hospice call daughter. SW set up 11am ambulance w/[facility]. SW called [facility], spoke w/Renay, let her know referral faxed and to call daughter to set up meeting time, pt is going back to [facility] at 11am. She will get in touch w/daughter to set up a meeting time. SW let RN here, [facility], and family know time of transport. SW did also let [facility] know that family will be meeting w/hospice, referral made. No further needs, pt back to [facility] today, and family to meet w/hospice. IRENE Espinoza, MANAGER GREEN
[2018-01-31] MEDS: Venlafaxine XR 37.5 MG Capsule PO (10:22)
[2018-01-31] MEDS: Losartan Potassium 50 MG Tablet PO (10:22)
[2018-01-31] MEDS: Multivitamins,Ther W-Minerals Tablet 1 TABLET PO (10:22)
[2018-01-31] MEDS: Pantoprazole Sodium 40 MG Tablet PO (10:23)
[2018-01-31] MEDS: HYDROCHLOROTHIAZIDE 12.5 MG CAPSULE PO (10:23)
[2018-01-31] MEDS: RisperiDONE 0.25 MG Tablet PO (10:23)
[2018-01-31] MEDS: Memantine Hydrochloride 10 MG Tablet PO (10:23)
[2018-01-31] MEDS: Senna/Docusate Sodium 1 Tablet PO (10:24)
[2018-01-31 13:26] LABS: Pathologist Review Reviewed
--- NOTE | 2018-02-03 07:03 | PCM.CONS.GEN ---
Reason for Consult Date of Consultation: 01/31/18 Reason for Consultation: anemia History of Present Illness: The patient is a 82 year old F with a history of dementia who is a jail resident. The patient was noticed by her family to be very pale. Hemoglobin was checked jail. Her hemoglobin returned as 4.4. She was transferred to [facility]. A stool for Hemoccult was checked and this was negative. The patient was admitted to the medicine service and was transfused 3 units of packed red cells. I was consulted. The patient's daughter was at the bedside and we discussed the patient's history and current situation and plans. The patient is not had a previous endoscopy-either upper or lower endoscopy. The patient's , passed out. Apparently the day after his colonoscopy, so she was reluctant to consider undergoing colonoscopy. Past Medical History Allergies No Known Allergies Allergy (Verified 09/23/17 13:04) Home Medications: Ambulatory Orders Medication Instructions Recorded Denosumab [Prolia] 60 mg SQ .COMPLEX 09/20/17 Levothyroxine [Synthroid] 50 mcg PO DAILY 09/20/17 Memantine Hydrochloride [Namenda] 10 mg PO BID 09/20/17 Cholecalciferol (Vitamin D3) 2,000 unit PO DAILY 09/23/17 [Vitamin D3] Acetaminophen 1,000 mg PO TID 01/30/18 Furosemide [Lasix] 20 mg PO DAILY 01/30/18 Losartan/Hydrochlorothiazide 1 tab PO DAILY 01/30/18 [Hyzaar 50-12.5 Tablet] Multivit-Min/Iron Fum/Folic AC 1 tablet PO DAILY 01/30/18 [Ahpjx-Lkrwthu-Kshkrnfs Tablet] Omeprazole 20 mg PO QHS 01/30/18 Paroxetine HCl [Paxil] 20 mg PO DAILY 01/30/18 Risperidone [Risperdal] 0.25 mg PO BID 01/30/18 Sennosides/Docusate Sodium [Senna 1 tablet PO BID 01/30/18 Plus Tablet] Venlafaxine XR [Effexor Xr] 37.5 mg PO DAILY 01/30/18 traZODone [Desyrel] 25 mg PO QHS 01/30/18 Ferrous Sulfate 325 mg PO BIDCM #1 tablet 01/31/18 Lorazepam [Ativan] 0.5 mg PO TID PRN #3 tab 01/31/18 Potassium Chloride 20 meq PO DAILY #1 packet 01/31/18 Smoking Status: Never smoker Review of Systems Unable to obtain accurate/complete ROS d/t: dementia - Physical Exam General: No apparent distress Lungs: Clear to auscultation, Normal air movement Cardiovascular: Regular rate, Regular Rhythm Abdomen: Bowel Sounds Present, Soft, Non Tender Vital Signs Temp Pulse Resp BP Pulse Ox 98.7 F 78 16 143/62 H 93 01/31/18 10:12 01/31/18 10:12 01/31/18 10:12 01/31/18 10:12 01/31/18 10:12 Oxygen Delivery Method Room Air Weight: 81.1 kg Body Mass Index (BMI) 30.7 Assessment/Plan All Active Problems Acute blood loss anemia (Acute) anemia-unknown cause. I discussed with the daughter that I would recommend performing upper and lower endoscopy. After discussion with the daughter and given the mother's anxieties about lower endoscopy and the fact that the daughter had felt that her mother would not want to have a colonoscopy performed, we discussed just performing upper endoscopy. Later that morning, after discussion with the hospitalist service. It seems the family has decided to not proceed with any additional testing and return her to the jail.
--- NOTE | 2018-02-03 07:07 | CON.PCM_ITS ---
Reason for Consult Date of Consultation: 01/31/18 Reason for Consultation: anemia History of Present Illness: The patient is a 82 year old F with a history of dementia who is a half-way resident. The patient was noticed by her family to be very pale. Hemoglobin was checked half-way. Her hemoglobin returned as 4.4. She was transferred to [facility]. A stool for Hemoccult was checked and this was negative. The patient was admitted to the medicine service and was transfused 3 units of packed red cells. I was consulted. The patient's daughter was at the bedside and we discussed the patient's history and current situation and plans. The patient is not had a previous endoscopy-either upper or lower endoscopy. The patient's , passed out. Apparently the day after his colonoscopy, so she was reluctant to consider undergoing colonoscopy. Past Medical History Allergies No Known Allergies Allergy (Verified 09/23/17 13:04) Home Medications: Ambulatory Orders Medication Instructions Recorded Denosumab [Prolia] 60 mg SQ .COMPLEX 09/20/17 Levothyroxine [Synthroid] 50 mcg PO DAILY 09/20/17 Memantine Hydrochloride [Namenda] 10 mg PO BID 09/20/17 Cholecalciferol (Vitamin D3) 2,000 unit PO DAILY 09/23/17 [Vitamin D3] Acetaminophen 1,000 mg PO TID 01/30/18 Furosemide [Lasix] 20 mg PO DAILY 01/30/18 Losartan/Hydrochlorothiazide 1 tab PO DAILY 01/30/18 [Hyzaar 50-12.5 Tablet] Multivit-Min/Iron Fum/Folic AC 1 tablet PO DAILY 01/30/18 [Ptpjh-Ohtcwbw-Cppgkdbc Tablet] Omeprazole 20 mg PO QHS 01/30/18 Paroxetine HCl [Paxil] 20 mg PO DAILY 01/30/18 Risperidone [Risperdal] 0.25 mg PO BID 01/30/18 Sennosides/Docusate Sodium [Senna 1 tablet PO BID 01/30/18 Plus Tablet] Venlafaxine XR [Effexor Xr] 37.5 mg PO DAILY 01/30/18 traZODone [Desyrel] 25 mg PO QHS 01/30/18 Ferrous Sulfate 325 mg PO BIDCM #1 tablet 01/31/18 Lorazepam [Ativan] 0.5 mg PO TID PRN #3 tab 01/31/18 Potassium Chloride 20 meq PO DAILY #1 packet 01/31/18 Smoking Status: Never smoker Review of Systems Unable to obtain accurate/complete ROS d/t: dementia - Physical Exam General: No apparent distress Lungs: Clear to auscultation, Normal air movement Cardiovascular: Regular rate, Regular Rhythm Abdomen: Bowel Sounds Present, Soft, Non Tender Vital Signs Temp Pulse Resp BP Pulse Ox 98.7 F 78 16 143/62 H 93 01/31/18 10:12 01/31/18 10:12 01/31/18 10:12 01/31/18 10:12 01/31/18 10:12 Oxygen Delivery Method Room Air Weight: 81.1 kg Body Mass Index (BMI) 30.7 Assessment/Plan All Active Problems Acute blood loss anemia (Acute) anemia-unknown cause. I discussed with the daughter that I would recommend performing upper and lower endoscopy. After discussion with the daughter and given the mother's anxieties about lower endoscopy and the fact that the daughter had felt that her mother would not want to have a colonoscopy performed, we discussed just performing upper endoscopy. Later that morning, after discussion with the hospitalist service. It seems the family has decided to not proceed with any additional testing and return her to the half-way.
== END 2018-01-31 11:24 | disposition home or self-care (01) | DRG 812 ==
LOC: ED 16:57 → ICU 17:03
PROVIDERS: Admitting Provider Internal Medicine; Emergency Provider Emergency Medicine; Family Provider Family Medicine; PCP Family Medicine
DX: D62 Acute posthemorrhagic anemia (principal); E03.9 Hypothyroidism, unspecified; I10 Essential (primary) hypertension; F03.90 Unspecified dementia, unspecified severity, without behavioral disturbance, psychotic disturbance, mood disturbance, and anxiety
CPT/HCPCS: 80048; 82274; 82728; 83540; 83550; 85025; 85610; 85730; 86850; 86900; 86920; 86922; 87641; 93005; 99285; J7030; P9016; P9040; A4216